=== PATIENT | male | born 1955 | race African-American/Black ===

== ENCOUNTER 2017-05-13 12:03 | Inpatient (IN) ==
[2017-05-13 17:29] LABS: Basophils % 0.2 % (0.0-0.8); Eosinophils % 0.1 % (0.00-10.9); Hematocrit 49.4 VOL% (42.0-52.0); Immature Granulocytes % 0.6 %; Immature Granulocytes Absolute 0.08 #; Lymphocytes # 1.1 10*3/uL (1.4-4.0); Mean Corpuscular HGB Conc 32.4 GM/DL (32-36); Mean Corpuscular Hemoglobin 27 PG (27-34); Mean Corpuscular Volume 83.7 FL (87-102); Mean Platelet Volume 10.8 FL (9.6-12.0); Monocytes # 0.3 10*3/uL (0.11-0.8); Monocytes % 2.4 % (1.7-12.7); Neutrophils # 11.8 10*3/uL (1.4-7.4); Neutrophils % 88.7 % (38.7-73.9); Platelet Count 441 T/CUMM (130-400); Red Cell Distribution Width 14.9 % (9.3-17.3); White Blood Count 13.3 T/CUMM (4-12)
[2017-05-13] MEDS ORDERED: DEXTROSE 50% 25 GM/50 ML VIAL IV PRN (17:32)
[2017-05-13] MEDS ORDERED: ONDANSETRON 4 MG/2 ML VIAL IV PRN (17:32)
[2017-05-13] MEDS ORDERED: GLUCAGON 1 MG VIAL IM PRN (17:32)
[2017-05-13] MEDS ORDERED: ACETAMINOPHEN 325 MG TABLET PO PRN (17:32)
[2017-05-13] MEDS ORDERED: ALBUTEROL/IPRATROPIUM 3 ML NEB RESP TX PRN (17:34)
[2017-05-13 18:00] LABS: Albumin 3.3 G/DL (3.4-5.0); Bilirubin,Total 0.8 MG/DL (0.2-1.0); Calcium 9.5 MG/DL (8.5-10.1); Phosphorous 2.2 MG/DL (2.5-4.9); Total Protein 7.4 G/DL (6.4-8.3)
[2017-05-13 18:01] LABS: Magnesium 2.9 MG/DL (1.8-2.4); Osmolality,Calculated 277.7 MOS/KG (273-304); Potassium 4.5 MMOL/L (3.5-5.1)
[2017-05-13 18:40] LABS: Lactic Acid 2.3 MMOL/L (0.4-2.0)
[2017-05-13] MEDS: methylPREDNISolone SOD SUC 40 MG/1 ML VIAL IV SCH (19:15)
[2017-05-13] MEDS: LEVOFLOXACIN INJ 750 MG in PREMIX 1 EACH IV SCH (19:15)
[2017-05-13] MEDS: LOVASTATIN 20 MG TABLET PO SCH (19:15)
[2017-05-13] MEDS: ALBUTEROL/IPRATROPIUM 3 ML NEB RESP TX SCH (20:05)
[2017-05-13] MEDS: INSULIN REGULAR 100 UNIT/ML SUBCUT SCH (20:42)
[2017-05-13] MEDS: ENOXAPARIN 40 MG/0.4 ML SYRINGE SUBCUT SCH (20:42)
[2017-05-13] MEDS: guaiFENesin/DM ER 600-30 MG TABLET PO SCH (20:42)
[2017-05-14] MEDS: methylPREDNISolone SOD SUC 40 MG/1 ML VIAL IV SCH ×4 (00:45→17:58)
[2017-05-14] MEDS: ALBUTEROL/IPRATROPIUM 3 ML NEB RESP TX SCH ×4 (00:47→19:49)
[2017-05-14 05:00] LABS: Basophils % 0.3 % (0.0-0.8); Hematocrit 45.5 VOL% (42.0-52.0); Hemoglobin 14.7 GM/DL (14.0-18.0); Immature Granulocytes % 0.7 %; Immature Granulocytes Absolute 0.09 #; Lymphocytes # 1.3 10*3/uL (1.4-4.0); Lymphocytes % 10.2 % (21.2-54.2); Mean Corpuscular HGB Conc 32.3 GM/DL (32-36); Mean Corpuscular Hemoglobin 27 PG (27-34); Mean Corpuscular Volume 83.3 FL (87-102); Mean Platelet Volume 10.7 FL (9.6-12.0); Monocytes # 0.6 10*3/uL (0.11-0.8); Monocytes % 4.7 % (1.7-12.7); Neutrophils # 10.9 10*3/uL (1.4-7.4); Neutrophils % 84.1 % (38.7-73.9); Platelet Count 435 T/CUMM (130-400); Red Blood Count 5.46 MC/CUMM (3.8-5.5); Red Cell Distribution Width 14.9 % (9.3-17.3); White Blood Count 12.9 T/CUMM (4-12)
[2017-05-14 05:22] LABS: Apearance,Urine Slightly Hazy (Clear); Bilirubin,Urine Negative (Negative); Blood, Urine Moderate mg/dL (Negative); Glucose,Urine (UA) Negative (Negative); Ketones,Urine Negative (Negative); Mucus,Urine Few /LPF (Occasional); Nitrite,Urine Negative (Negative); Protein,Urine 100 MG/DL; Squamous Epithelial Cell,Urine Occasional /HPF (0-10); Urine Color Yellow (Yellow); Urine Specific Gravity 1.026 (1.001-1.035); Urine Urobilinogen < 2.0 EU/DL (0.2-1.0); WBC,Urine 1 /HPF (0-6)
[2017-05-14 05:53] LABS: Albumin 2.9 G/DL (3.4-5.0); Bilirubin,Total 0.6 MG/DL (0.2-1.0); Calcium 9.5 MG/DL (8.5-10.1); Magnesium 2.9 MG/DL (1.8-2.4); Osmolality,Calculated 280.7 MOS/KG (273-304); Phosphorous 2.9 MG/DL (2.5-4.9); Potassium 4.5 MMOL/L (3.5-5.1)
[2017-05-14 07:19] LABS: Band Neutrophils 3 % (0-10); Lymphocytes 8 % (20-55); Segmented Neutrophils 87 % (50-85); Total Cells Counted 100
[2017-05-14 07:20] LABS: Hypochromasia 1+; Microcytosis 1+; Platelet Estimate Increased
[2017-05-14] MEDS: ASPIRIN EC 325 MG TABLET PO SCH (08:46)
[2017-05-14] MEDS: metFORMIN 500 MG TABLET PO SCH (08:46)
[2017-05-14] MEDS: INSULIN REGULAR 100 UNIT/ML SUBCUT SCH ×4 (08:46→21:06)
[2017-05-14] MEDS: FUROSEMIDE 40 MG TABLET PO SCH (08:47)
[2017-05-14] MEDS: guaiFENesin/DM ER 600-30 MG TABLET PO SCH ×2 (08:47→21:06)
[2017-05-14] MEDS: POTASSIUM CHLORIDE 20 MEQ TABLET PO SCH (08:47)
[2017-05-14] MEDS: amLODIPine 10 MG TABLET PO SCH (08:47)
[2017-05-14] MEDS: LOVASTATIN 20 MG TABLET PO SCH (17:11)
[2017-05-14] MEDS: LEVOFLOXACIN INJ 750 MG in PREMIX 1 EACH IV SCH (18:04)
[2017-05-14] MEDS: ENOXAPARIN 40 MG/0.4 ML SYRINGE SUBCUT SCH (21:05)
[2017-05-15] MEDS: methylPREDNISolone SOD SUC 40 MG/1 ML VIAL IV SCH ×3 (00:22→11:57)
[2017-05-15] MEDS: ALBUTEROL/IPRATROPIUM 3 ML NEB RESP TX SCH ×2 (01:07→08:42)
[2017-05-15 05:57] LABS: Basophils # 0.1 10*3/uL (0.0-0.2); Basophils % 0.3 % (0.0-0.8); Hematocrit 45.1 VOL% (42.0-52.0); Hemoglobin 14.4 GM/DL (14.0-18.0); Immature Granulocytes % 1.4 %; Immature Granulocytes Absolute 0.29 #; Lymphocytes # 1.3 10*3/uL (1.4-4.0); Lymphocytes % 6.3 % (21.2-54.2); Mean Corpuscular HGB Conc 31.9 GM/DL (32-36); Mean Corpuscular Hemoglobin 27 PG (27-34); Mean Corpuscular Volume 83.7 FL (87-102); Mean Platelet Volume 11.1 FL (9.6-12.0); Monocytes # 1.3 10*3/uL (0.11-0.8); Monocytes % 5.9 % (1.7-12.7); Neutrophils # 18.2 10*3/uL (1.4-7.4); Neutrophils % 86.1 % (38.7-73.9); Platelet Count 492 T/CUMM (130-400); Red Blood Count 5.39 MC/CUMM (3.8-5.5); White Blood Count 21.2 T/CUMM (4-12)
[2017-05-15 06:23] LABS: Calcium 9.4 MG/DL (8.5-10.1); Osmolality,Calculated 284.4 MOS/KG (273-304); Potassium 4.6 MMOL/L (3.5-5.1)
[2017-05-15 06:27] LABS: Giant Platelets Few; Hypochromasia Slight; Lymphocytes 3 % (20-55); Platelet Estimate Adequate; Segmented Neutrophils 92 % (50-85); Total Cells Counted 100
[2017-05-15 06:28] LABS: Microcytosis Slight
[2017-05-15] MEDS: metFORMIN 500 MG TABLET PO SCH (08:07)
[2017-05-15] MEDS: POTASSIUM CHLORIDE 20 MEQ TABLET PO SCH (08:07)
[2017-05-15] MEDS: ASPIRIN EC 325 MG TABLET PO SCH (08:07)
[2017-05-15] MEDS: FUROSEMIDE 40 MG TABLET PO SCH (08:07)
[2017-05-15] MEDS: amLODIPine 10 MG TABLET PO SCH (08:07)
[2017-05-15] MEDS: guaiFENesin/DM ER 600-30 MG TABLET PO SCH (08:07)
[2017-05-15] MEDS: INSULIN REGULAR 100 UNIT/ML SUBCUT SCH ×2 (08:08→11:58)
[2017-05-15 11:33] VITALS: BP 110/64
== END 2017-05-15 14:55 | disposition home or self-care (01) | DRG 871 ==
LOC: N.3E 15:14
PROVIDERS: ADMIT Internal Medicine; ATTEND Internal Medicine